=== PATIENT | female | born 1935 | race Hispanic/Latino ===

== ENCOUNTER 2016-11-30 09:36 | Day surgery (SDC) | payer MEDICARE ==
[2016-11-30 10:31] LABS: Basophils % (Auto) 0.7 % (0.0-1.8); Eosinophils % (Auto) 2.4 % (0.0-4.3); Hematocrit 48.1 % (30.3-42.9); Hemoglobin 15.9 gm/dl (10.1-14.3); Mean Corpuscular HGB Conc 33 % (30-34); Mean Corpuscular Hemoglobin 30 pg (28-32); Mean Corpuscular Volume 91 fl (79-97); Platelet Count 153 K/mm3 (140-440); Red Blood Count 5.28 M/mm3 (3.65-5.03); Red Cell Distribution Width 14.8 % (13.2-15.2); White Blood Count 5.8 K/mm3 (4.5-11.0)
[2016-11-30 10:43] LABS: INR 1.02 (0.87-1.13)
[2016-11-30 10:46] LABS: Anion Gap 18 mmol/L; BUN/Creatinine Ratio 16.66; Blood Urea Nitrogen 15 mg/dL (7-17); Calcium 9.3 mg/dL (8.4-10.2); Carbon Dioxide 34 mmol/L (22-30); Chloride 94.9 mmol/L (98-107); Glucose 116 mg/dL (65-100); Potassium 3.7 mmol/L (3.6-5.0); Sodium 143 mmol/L (137-145)
[2016-11-30] MEDS ORDERED: NACL 0.9% 500 ML 500 ML IV SCH (11:00)
[2016-11-30] MEDS ORDERED: HEPARIN/NS 5000 UNIT/500ML(CATH LAB) 1,500 ML IR ONE (11:05)
[2016-11-30] MEDS: VERSED ONE ×2 (11:26→11:38)
[2016-11-30] MEDS: XYLOCAINE 2% INFILTRATI ONE ×2 (11:26→11:39)
[2016-11-30] MEDS: SUBLIMAZE ONE ×2 (11:26→11:38)
[2016-11-30] MEDS ORDERED: LOPRESSOR IV ONE (11:46)
--- NOTE | 2016-11-30 12:27 | Discharge Summary ---
Short Stay Discharge Plan Activity: advance as tolerated Weight Bearing Status: Partial Weight Bearing Diet: low fat, low cholesterol, low salt Wound: keep clean and dry Special Instructions: no heavy lifting (3 days) Follow up with: HUI SOTO MD [Primary Care Provider] - 7 Days DIANE GARCÍA MD [Staff Physician] - 7 Days
[2016-11-30] MEDS ORDERED: NACL 0.9% 1000 ML 1,000 ML IV SCH (13:00)
--- NOTE | 2016-11-30 15:54 | Cardiac Catherization Report ---
REASON FOR PROCEDURE: The patient is a 81-year-old woman who presented with chest pain and shortness of breath. An outpatient echocardiogram demonstrated severe aortic stenosis. A Persantine thallium stress test was abnormal with inferolateral ischemia. She was recommended for a right and left heart catheterization. PROCEDURE: Right and left heart catheterization. DESCRIPTION OF PROCEDURE: The patient was prepped and draped in a sterile fashion after informed consent. The right femoral artery and vein were entered using the Seldinger technique. A 6-Angolan sheath was placed in the artery and an 8-Ang[place] sheath in the vein. A [place] catheter was then advanced to the pulmonary artery position. A right Peace catheter was advanced into the left ventricle. Cardiac output was measured using the thermodilution method. Simultaneous right and left heart filling pressures were then measured. Following this, the [place] catheter was withdrawn and right heart filling pressures were measured during [place] withdrawal. Left ventricle angiography was performed using a hand injection, with the right Peace catheter. The right Peace was then withdrawn from the left ventricle across the aortic valve and transaortic pressures measured. We then performed right coronary angiography followed by left coronary angiography using a #4 left Peace catheter. The catheter was then withdrawn, sheath withdrawn and hemostasis achieved at both the arterial and venous sites using manual compression. The patient was returned to the postprocedure unit in stable condition. There were no complications. FINDINGS: HEMODYNAMICS: The mean right atrial pressure was 10. Right ventricular pressure was 70/12. Pulmonary artery pressure was 70/40. The mean pulmonary artery wedge pressure was 25. Left ventricular end-diastolic pressure was 25 to 30. Cardiac output was 3.7 L per minute. AORTIC STENOSIS: The left ventricular pressure was 228/17. The ascending aortic pressure was 164/90. On pullback across the aortic valve, the cmix-ik-sopy transaortic gradient was 61, and mean gradient 42. This was consistent with at least exivthfm-ub-lwazya aortic stenosis. The aortic valve area calculated using the Gorlin equation was 0.6. This may be an overestimation of the valve area due to a low thermodilution cardiac output estimation. CORONARY ANGIOGRAPHY: There was a distal narrowing of the left main coronary artery before its bifurcation into the LAD and circumflex systems. The left anterior descending artery contained a long irregular, less than 50% stenosis of its proximal to mid segment. Otherwise, the LAD and diagonal branches contained mild irregularities. The circumflex system was a large system, codominant with the right coronary artery, terminating in a small posterior descending branch. This vessel contained a long, 75 to 80% stenosis of its proximal AV groove segment. This was followed by another focal, 95 to 99% stenosis of the mid AV groove segment. The right coronary artery was codominant with the circumflex, terminating in a fairly large acute marginal branch. This vessel contained a proximal, 85% stenosis followed by another 60 to 70% stenosis of its mid segment. The left ventricle was severely dilated. There was severe left ventricular systolic dysfunction, ejection fraction less than 20%. CONCLUSION: 1. Moderate increase in right and left heart filling pressures. 2. Severe pulmonary hypertension, pulmonary artery systolic pressure of 70. 3. At least moderately severe aortic stenosis with a pgjw-et-ygge gradient of 61 and a mean transaortic gradient of 42. 4. Multivessel coronary artery disease as described. 5. Dilated cardiomyopathy, severe left ventricular systolic dysfunction, ejection fraction less than 20%. RECOMMENDATION: Aortic valve replacement and coronary artery bypass surgery. JOB# [id number] FLACO/NTS
[2016-11-30 16:20] VITALS: BP 149/95
== END 2016-11-30 16:40 | disposition home or self-care (01) ==
LOC: OPU 09:36
PROVIDERS: ATTEND Internal Medicine Cardiovascular Disease
DX: I25.10 Atherosclerotic heart disease of native coronary artery without angina pectoris (principal); I10 Essential (primary) hypertension; I27.2 Other secondary pulmonary hypertension; I35.0 Nonrheumatic aortic (valve) stenosis; Z82.49 Family history of ischemic heart disease and other diseases of the circulatory system; Z79.899 Other long term (current) drug therapy; Z79.01 Long term (current) use of anticoagulants
CPT/HCPCS: 36415; 80048; 85610; 85730; 93005; 93010; 93460; C1894; J1644; J2250; J3010; J7040; Q9967